=== PATIENT | male | born 1995 | race Caucasian/White ===

== ENCOUNTER 2020-12-02 23:51 | Emergency (ER) | payer BC ==
[~2020-12-02] VITALS: Ht 190.5 cm; Wt 100.0 kg
[2020-12-02 23:52] VITALS: BP 111/71
== END 2020-12-03 05:16 | disposition left against medical advice (07) ==
LOC: EMS 23:54
DX: H57.12 Ocular pain, left eye (principal); Z53.21 Procedure and treatment not carried out due to patient leaving prior to being seen by health care provider